=== PATIENT | male | born 1955 | race Hispanic/Latino ===

== ENCOUNTER 2023-10-17 08:48 | Day surgery (SDC) | payer MEDICARE ==
[2023-10-11 11:15] VITALS: BP 140/75; PULSE 61; RESP 15
[2023-10-11 11:35] LABS: BASOPHILS # (AUTO) 0.02 K/uL (0.00-0.20); BASOPHILS % (AUTO) 0.4 % (0.0-5.0); EOSINOPHILS % (AUTO) 6.3 % (0.0-8.0); HEMATOCRIT 25.9 % (42-54); IMMATURE GRANULOCYTE ABSOLUTE 0.04 K/uL (0-1); LYMPHOCYTES % (AUTO) 20.4 % (21.0-51.0); MEAN CORPUSCULAR HEMOGLOBIN 28.4 pg (27.0-33.0); MEAN CORPUSCULAR HGB CONC 33.6 g/dL (32.0-36.0); MEAN CORPUSCULAR VOLUME 84.6 fL (79-99); MONOCYTES # (AUTO) 0.6 K/uL (0.1-1.0); MONOCYTES % (AUTO) 12.6 % (3.0-13.0); NEUTROPHILS # (AUTO) 2.8 K/uL (1.8-7.7); NEUTROPHILS % (AUTO) 59.5 % (40.0-77.0); PLATELET COUNT (AUTO) 236 K/uL (130-400); RED BLOOD CELL COUNT(AUTO) 3.06 MIL/uL (4.50-6.20); RED CELL DISTRIBUTION WIDTH 16.3 % (11.0-15.5); WHITE BLOOD COUNT (AUTO) 4.8 K/uL (4.8-10.8)
[2023-10-11 11:41] LABS: APPEARANCE,URINE CLOUDY (CLEAR); BILIRUBIN,URINE NEGATIVE (NEGATIVE); COLOR,URINE LIGHT-YELLOW (YELLOW); GLUCOSE, URINE (UA) NEGATIVE (NEGATIVE); KETONES,URINE NEGATIVE (NEGATIVE); LEUKOCYTE ESTERASE ,URINE 500 Leu/uL (NEGATIVE); NITRATE,URINE 1+ (NEGATIVE); OCCULT BLOOD,URINE SMALL (NEGATIVE); PROTEIN,URINE 100 mg/dL (NEGATIVE); UROBILINOGEN,URINE 0.2 mg/dL (0.2-1.0)
[2023-10-11 11:44] LABS: ADD UA MICROSCOPIC YES
[2023-10-11 11:52] LABS: INR 0.96 (0.85-1.15); PROTHROMBIN TIME 11.2 SEC (9.6-11.6)
[2023-10-11 11:54] LABS: PARTIAL THROMBOPLASTIN TIME 38.8 SEC (26.3-35.5)
[2023-10-11 12:13] LABS: BACTERIA,URINE FEW /HPF (None Seen); SQUAMOUS EPITHELIAL CELL,UR RARE /HPF (0-2); TRIPLE PHOSPHATE CRYSTAL,UR FEW /LPF (None Seen); WBC CLUMP MOD /HPF (0-1); WBC,URINE TNTC /HPF (0-1)
[2023-10-11 13:32] LABS: CREATININE 4.2 mg/dL (0.5-1.5); POTASSIUM 4.2 mmol/L (3.5-5.1)
[2023-10-17] VITALS (18 sets, daily range): BP systolic 143–187; BP diastolic 72–89; PULSE 53–68; RESP 11–18
[~2023-10-17] VITALS: Ht 170.2 cm; Wt 85.8 kg
[~2023-10-17 08:48] MED LIST: CARV6.25 PO; CETI10TA57 PO; CHOL100046 PO; FERS325 PO; FOLI0.8T22 PO; NIFE90TA65 PO; PANT40TA54 PO; TAMS-1 PO
[2023-10-17] MEDS ORDERED: CEFTRIAXONE 1G VIAL ONE (09:07)
[2023-10-17] MEDS: LACTATED RINGERS 1000ML 1,000 ML IV ONE (10:02)
[2023-10-17] MEDS: 0.9%NACL 1000ML 1,000 ML IV ONE (10:11)
[2023-10-17] MEDS: GENTAMICIN 80 MG/NS 100 ML PB 100 ML IV ONE (12:14)
[2023-10-17] MEDS ORDERED: FENTANYL CITRATE PF 50 MCG/1 ML 2ML VIAL ONE ×2 (13:33→15:59)
[2023-10-17] MEDS ORDERED: ROCURONIUM BROMIDE 10MG/1ML 5ML VL ONE (13:33)
[2023-10-17] MEDS ORDERED: GLYCOPYRROLATE 0.2 MG/ML 5 ML VIAL ONE ×2 (13:33→15:54)
[2023-10-17] MEDS ORDERED: LIDOCAINE PF 100MG/5ML (2%) SYRINGE 5ML ONE (13:33)
[2023-10-17] MEDS ORDERED: PROPOFOL 10 MG/ML 20ML VIAL IV ONE (13:33)
[2023-10-17] MEDS: CEFTRIAXONE 1G VIAL IVPB ONE (13:46)
[2023-10-17] MEDS ORDERED: ONDANSETRON 4MG INJ ONE (14:12)
[2023-10-17] MEDS ORDERED: NEOSTIGMINE METHYLSULFATE 1MG/ML IV ONE (15:55)
[2023-10-17] MEDS: MEPERIDINE-PF 25 MG/ML SYG ONE (17:00)
[2023-10-17] MEDS: ONDANSETRON 4MG INJ ONE (17:01)
[2023-10-17] MEDS: HYDRALAZINE 20MG/ML VIAL ONE (17:02)
[2023-10-17] MEDS ORDERED: BACITRACIN 1 EACH PACKET TP ONE (18:42)
== END 2023-10-17 19:00 | disposition home or self-care (01) ==
LOC: DAH 08:48
PROVIDERS: ATTEND Urology
DX: N40.1 Benign prostatic hyperplasia with lower urinary tract symptoms (principal); N21.0 Calculus in bladder; R33.8 Other retention of urine; N13.8 Other obstructive and reflux uropathy; K21.9 Gastro-esophageal reflux disease without esophagitis; I12.9 Hypertensive chronic kidney disease with stage 1 through stage 4 chronic kidney disease, or unspecified chronic kidney disease; N18.9 Chronic kidney disease, unspecified; Z82.49 Family history of ischemic heart disease and other diseases of the circulatory system; Z83.79 Family history of other diseases of the digestive system; Z80.9 Family history of malignant neoplasm, unspecified; Z87.891 Personal history of nicotine dependence; Z79.899 Other long term (current) drug therapy
CPT/HCPCS: 80048; 85025; 85610; 85730; 87077; 87088; 87186; 84154; 84153; 81001; 36415 ×2; 71045; 93005; 52648; 52318; 55700; 86850; 86900; 86901; 88300; 88305; 76872; 76942; A6260; A4663; J7030 ×2; A4354; J7120; J3010 ×2; J3490 ×3; J2001; J0360; J0696 ×2; J2704; J2405 ×2; J2710; J2175; J1580; A4315; A4358; A4930; A4215; A4223; A4222; A4221; A4600

== ENCOUNTER → 2024-01-03 | Outpatient (CLI) | payer MEDICARE | END | disposition home or self-care (01) | LOC: RAH 08:27 | PROVIDERS: ATTEND Nurse Practitioner Family | DX: N40.0 Benign prostatic hyperplasia without lower urinary tract symptoms (principal); N13.30 Unspecified hydronephrosis; N13.4 Hydroureter; Z93.3 Colostomy status | CPT/HCPCS: 74176 ==

== ENCOUNTER → 2024-06-09 | Outpatient (CLI) | payer OTHER ==
[~2024-06-09] MED LIST changes: +GADOTERATE MEGLUMINE 10 MMOL/20 ML VIAL IV ONE
== END | disposition home or self-care (01) ==
LOC: RAH 07:47
PROVIDERS: ATTEND Surgery Surgical Oncology
DX: K76.9 Liver disease, unspecified (principal)
CPT/HCPCS: 74183; A9575

== ENCOUNTER → 2024-12-28 | Outpatient (CLI) | payer OTHER, MEDICARE ==
[~2024-12-28] MED LIST changes: -GADOTERATE MEGLUMINE 10 MMOL/20 ML VIAL IV ONE; -TAMS-1 PO; +TAMS-55 PO
--- NOTE | 2024-12-28 16:14 | HMCIMG ---
Exam Type: US RENAL SONOGRAM Clinical Information: Other hydronephrosis Comparison: None Findings and impression: Kidneys are normal in size and echogenicity. Simple cyst right renal lower interpolar region is seen. Significant urinary bladder postvoid urinary retention, 242 cc. Prostate is enlarged. Urinary retention may be due to chronic bladder outlet obstruction. Impression: Urinary postvoid retention, possibly caused by enlarged prostate.
--- NOTE | 2024-12-28 16:18 | HMCIMG ---
Testicular ultrasound with color-flow Doppler Findings: The testes are of normal size and echogenicity. The right testis measures 4.6 x 2.7 x 2.4 cm. The left testis measures 4.4 x 3.2 x 2 point cm. Vascular flow is preserved to both testes- there is no evidence of torsion. No testicular masses or inflammatory changes are seen. No fluid collections are noted. The epididymus are unremarkable bilaterally except for small bilateral epididymal head cysts. The scrotal skin shows no thickening or inflammatory changes. Impression: Normal testicular ultrasound except for small bilateral epididymal head cysts. . No neoplasm identified.
== END | disposition home or self-care (01) ==
LOC: RAH 14:47
PROVIDERS: ATTEND Urology
DX: N28.1 Cyst of kidney, acquired (principal); N50.3 Cyst of epididymis; R33.8 Other retention of urine; N13.39 Other hydronephrosis; N43.3 Hydrocele, unspecified
CPT/HCPCS: 76770; 76870